=== PATIENT | female | born 1960 ===

== ENCOUNTER 2016-04-19 08:44 | Day surgery (SDC) | payer BC ==
[~2016-04-19 08:44] MED LIST: Lactated Ringers 1,000 ML IV SCH
[2016-04-19] MEDS ORDERED: Propofol 200 MG/20 ML SDV ONE (10:26)
[2016-04-19] MEDS ORDERED: fentaNYL 100 MCG/2 ML SDV ONE (10:26)
[2016-04-19 11:13] VITALS: BP 137/84
--- NOTE | 2016-04-19 14:30 | OR ---
PREOPERATIVE DIAGNOSIS: Screening colonoscopy. POSTOPERATIVE DIAGNOSIS: Mild sigmoid diverticulosis, otherwise normal exam. PROCEDURE PROPOSED: Total flexible colonoscopy. PROCEDURE DONE: Total flexible colonoscopy. INDICATION: This is a 55-year-old female who comes in for her first colonoscopic exam. She has a history of a breast cancer diagnosed about a year ago. She denies any family history of colon cancer, and she is asymptomatic. TECHNIQUE: The patient brought to the endoscopy suite, placed in left lateral decubitus position. She was sedated per OUTSIDE SOLAR SALES CONSULTANT with propofol. The flexible video colonoscope was then passed transanally and under visualization advanced to the cecum. Examination revealed a normal ascending, transverse, and descending colon. The sigmoid colon revealed mild diverticulosis, and the rectal mucosa was normal. The scope was then withdrawn. The patient tolerated the procedure well. IMPRESSION: Mild sigmoid diverticulosis, otherwise normal exam. PLAN: The patient is reassured. I felt she could wait 10 years before she needs a repeat colonoscopy. SCM: 04/19/2016 11:42:17 MODL: 04/19/2016 12:09:00 /[id number]
== END 2016-04-19 12:10 | disposition home or self-care (01) ==
LOC: VM.SDS 08:44
PROVIDERS: ATTEND Surgery
DX: Z12.11 Encounter for screening for malignant neoplasm of colon (principal); K57.30 Diverticulosis of large intestine without perforation or abscess without bleeding; Z79.899 Other long term (current) drug therapy; Z98.890 Other specified postprocedural states
CPT/HCPCS: 45378; J2704; J3010; J7120

== ENCOUNTER 2020-03-04 13:17 | Emergency (ER) | payer BC ==
[2020-03-04] MEDS ORDERED: Lactated Ringers 1,000 ML IV ONE (13:38)
[2020-03-04] MEDS ORDERED: Sodium Chloride 0.9% 10 ML Syringe FLUSH PRN (13:38)
[2020-03-04] MEDS ORDERED: Metoclopramide 10 MG/2 ML SDV IVPUSH ONE (13:38)
[2020-03-04] MEDS ORDERED: Ondansetron 4 MG/2 ML SDV IVPUSH ONE (13:38)
[2020-03-04] MEDS ORDERED: Ketorolac 30 MG/ML SDV IVPUSH ONE (13:38)
--- NOTE | 2020-03-04 13:44 | EDM.PDOC ---
ED HPI GENERAL MEDICAL PROBLEM - General Chief Complaint: General Stated Complaint: DIZZINESS Time Seen by Provider: 03/04/20 13:44 Source of Information: Reports: Patient - History of Present Illness INITIAL COMMENTS - FREE TEXT/NARRATIVE: Karine is a 59 y/o female who is brought to the ER by her for dizziness that started upon waking this AM. She reports that room is spinning and it gets worse if she shuts her eyes. She has became a bit nauseated and also developed a headache on the right side since waking. She felt fine last night freed she went to bed. Never had this happen before. She did take a Dramamine about 9 am, but it has not helped. Headache Pain Score (Numeric/FACES): 5 - Related Data Allergies Allergy/AdvReac Type Severity Reaction Status Date / Time No Known Allergies Allergy Verified 03/04/20 13:41 Home Meds: Home Meds Cholecalciferol (Vitamin D3) [Vitamin D3] 1 mg PO DAILY 04/13/16 [History] Anastrozole [Arimidex] 1 mg PO DAILY 04/19/16 [History] Past Medical History HEENT History: Reports: None Cardiovascular History: Reports: None Respiratory History: Reports: None Gastrointestinal History: Reports: Other (See Below) Other Gastrointestinal History: [facility] HERNIA Genitourinary History: Reports: None Musculoskeletal History: Reports: None Neurological History: Reports: None Psychiatric History: Reports: None Endocrine/Metabolic History: Reports: None Hematologic History: Reports: None Immunologic History: Reports: None Oncologic (Cancer) History: Reports: Breast Dermatologic History: Reports: None - Past Surgical History HEENT Surgical History: Reports: Oral Surgery ED ROS GENERAL - Review of Systems Review Of Systems: See Below Constitutional: Reports: No Symptoms HEENT: Reports: Vertigo Respiratory: Reports: No Symptoms Cardiovascular: Reports: No Symptoms Endocrine: Reports: No Symptoms GI/Abdominal: Reports: Nausea : Reports: No Symptoms Musculoskeletal: Reports: No Symptoms Skin: Reports: No Symptoms Neurological: Reports: Dizziness, Headache Psychiatric: Reports: No Symptoms Hematologic/Lymphatic: Reports: No Symptoms Immunologic: Reports: No Symptoms ED EXAM, GENERAL - Physical Exam Exam: See Below General Appearance: Alert, WD/WN, No Apparent Distress (Adult female.) Eye Exam: Bilateral Eye: Nystagmus (vertical right beating), PERRL Ears: Normal External Exam, Normal Canal, Hearing Grossly Normal Nose: Normal Inspection, Normal Mucosa Throat/Mouth: Normal Inspection, Normal Lips, Normal Voice Head: Atraumatic, Normocephalic Neck: Normal Inspection, Supple Respiratory/Chest: No Respiratory Distress, Lungs Clear, Chest Non-Tender Cardiovascular: Normal Peripheral Pulses, Regular Rate, Rhythm GI/Abdominal: Normal Bowel Sounds, Soft, Non-Tender (Female) Exam: Deferred Rectal (Female) Exam: Deferred Back Exam: Normal Inspection Extremities: Normal Inspection, Normal Range of Motion, Normal Capillary Refill Neurological: Alert, Oriented, CN II-XII Intact, Normal Cognition, No Motor/Sensory Deficits Psychiatric: Normal Affect, Normal Mood Skin Exam: Warm, Dry, Intact, Normal Color Lymphatic: No Adenopathy Course - Vital Signs Text/Narrative:: 1340 The patient was seen by the PREDATORY ANIMAL EXTERMINATOR. Labs ordered. She was given a liter of NS, Toradol 30mg IVP, Reglan 20mg IVP, and Zofran 4mg IVP. 1450 Patient reports feeling much better. Reports room is not spinning now and she only has a mild headache. Able to get up and walk to the bathroom. States she feels much better now. UA pending yet. All other labs reviewed and negative. 1520 UA neg, patient given discharge instructions and left the ER in stable condition after written instructions given Last Recorded V/S: Last Vital Signs Temp 36.2 C 03/04/20 13:25 Pulse 108 H 03/04/20 13:25 Resp 18 03/04/20 13:25 BP 168/107 H 03/04/20 13:25 Pulse Ox 98 03/04/20 13:25 - Orders/Labs/Meds Orders: Active Orders 24 hr Category Date Time Status UA RFX CONRADO AND CULT IF INDIC [URIN] Stat Lab 03/04/20 13:37 Ordered Sodium Chloride 0.9% [Saline Flush] Med 03/04/20 13:38 Active 10 ml FLUSH ASDIRECTED PRN Saline Lock Insert [OM.PC] Stat Oth 03/04/20 13:37 Ordered Medication Orders Sodium Chloride (Saline Flush) 10 ml FLUSH ASDIRECTED PRN PRN Reason: Keep Vein Open Labs: Laboratory Tests 03/04/20 03/04/20 Range/Units 13:46 13:46 WBC 5.3 (4.0-10.0) x10^3/uL RBC 4.98 (4.00-5.50) x10^6/uL Hgb 15.0 (12.0-16.0) g/dL Hct 43.9 (33.0-47.0) % MCV 88.2 (78.0-93.0) fL MCH 30.1 (26.0-32.0) pg MCHC 34.2 (32.0-36.0) g/dL RDW Coeff of Rosalba 12.9 (10.0-15.0) % Plt Count 224 (130-400) x10^3/uL Neut % (Auto) 82.9 H (50.0-80.0) % Lymph % (Auto) 13.9 L (25.0-50.0) % Morrill % (Auto) 2.4 (2.0-11.0) % Eos % (Auto) 0.0 (0.0-4.0) % Baso % (Auto) 0.8 (0.2-1.2) % Sodium 141 (136-145) mmol/L Potassium 4.8 (3.5-5.1) mmol/L Chloride 105 (98-107) mmol/L Carbon Dioxide 28 (21-32) mmol/L Anion Gap 12.8 (5-15) mmol/L BUN 18 (7-18) mg/dL Creatinine 1.0 (0.55-1.02) mg/dL Est Cr Clr Drug Dosing TNP Estimated GFR (MDRD) 57 Glucose 143 H (74-106) mg/dL Calcium 9.3 (8.5-10.1) mg/dL Corrected Calcium 9.62 (8.5-10.1) mg/dL Magnesium 2.2 (1.8-2.4) mg/dL Total Bilirubin 0.5 (0.2-1.0) mg/dL AST 15 (15-37) U/L ALT 21 (14-59) U/L Alkaline Phosphatase 109 (46-116) U/L C-Reactive Protein 1.0 H (<=0.9) mg/dL Total Protein 7.3 (6.4-8.2) g/dL Albumin 3.6 (3.4-5.0) g/dL Globulin 3.7 g/dL Albumin/Globulin Ratio 0.97 Meds: Medications Generic Name Dose Route Start Last Admin Trade Name Juliette PRN Reason Stop Dose Admin Sodium Chloride 10 ml 03/04/20 13:38 Saline Flush FLUSH ASDIRECTED PRN Keep Vein Open Discontinued Medications Generic Name Dose Route Start Last Admin Trade Name Juliette PRN Reason Stop Dose Admin Lactated Ringer's 1,000 mls @ 999 mls/hr 03/04/20 13:38 03/04/20 13:51 Ringers, Lactated IV 03/04/20 14:38 999 mls/hr ONETIME ONE Administration Ketorolac Tromethamine 30 mg 03/04/20 13:38 03/04/20 13:50 Toradol IVPUSH 03/04/20 13:39 30 mg ONETIME ONE Administration Metoclopramide HCl 20 mg 03/04/20 13:38 03/04/20 13:54 Reglan IVPUSH 03/04/20 13:39 20 mg ONETIME ONE Administration Ondansetron HCl 4 mg 03/04/20 13:38 03/04/20 13:56 Zofran IVPUSH 03/04/20 13:39 4 mg ONETIME ONE Administration Departure - Departure Time of Disposition: 15:20 Disposition: Home, Self-Care 01 Clinical Impression: Headache Qualifiers: Headache type: unspecified Headache chronicity pattern: acute headache Intractability: not intractable Qualified Code(s): R51.9 - Headache, unspecified - Discharge Information Instructions: Dizziness, General Headache Without Cause Forms: ED Department Discharge Additional Instructions: -Use ibuprofen or acetaminophen as needed for headache -Stay well hydrated. You should drink a minimum of 8-8 oz glasses of water every day. -If the dizziness returns, you can follow up with your PCP or return to the ER. -If symptoms recur, you may need a Physical Therapy consult, but since your symptoms have improved with meds and IV fluids, we will send you home to rest. Sepsis Event Note (ED) - Evaluation Sepsis Screening Result: No Definite Risk - Focused Exam Vital Signs: Vital Signs Temp Pulse Resp BP Pulse Ox 03/04/20 13:25 36.2 C 108 H 18 168/107 H 98 - My Orders Last 24 Hours: My Active Orders 03/04/20 13:37 UA RFX CONRADO AND CULT IF INDIC [URIN] Stat Saline Lock Insert [OM.PC] Stat 03/04/20 13:38 Sodium Chloride 0.9% [Saline Flush] 10 ml FLUSH ASDIRECTED PRN - Assessment/Plan Last 24 Hours: My Active Orders 03/04/20 13:37 UA RFX CONRADO AND CULT IF INDIC [URIN] Stat Saline Lock Insert [OM.PC] Stat 03/04/20 13:38 Sodium Chloride 0.9% [Saline Flush] 10 ml FLUSH ASDIRECTED PRN
[2020-03-04 14:14] LABS: ANION GAP 12.8 mmol/L (5-15); CHLORIDE,CL 105 mmol/L (98-107); SODIUM,NA 141 mmol/L (136-145)
[2020-03-04 15:57] VITALS: BP 148/88; PULSE 88
== END 2020-03-04 15:27 | disposition home or self-care (01) ==
LOC: VM.ED 13:17
DX: R51.9 Headache, unspecified (principal); R42 Dizziness and giddiness; R11.0 Nausea
CPT/HCPCS: 36415; 80053; 81001; 83735; 85025; 86140; 96374; 96375; 99283; 99284-25; J1885; J2405; J2765; J7120